=== PATIENT | female | born 1945 | race Caucasian/White ===

== ENCOUNTER 2017-07-08 09:10 | Observation (INO) | payer OTHER, BC ==
[~2017-07-08] VITALS: Ht 157.5 cm; Wt 62.9 kg
[~2017-07-08 09:10] MED LIST: ADULT LOW DOSE81 M1 PO; ALTACE5 MG PO; ASPIR-LOW81 MG PO; ASPIR-MOX 325325 MG PO; ASPIR-TRIN325 M1 PO; CARBATROL-ER100 MG PO; FLOVENT DISKUS1 DIS2 IH; HYDROCODON-ACE1 EAC7 PO; LIPITOR10 MG PO; LIPITOR5 MG PO; LOPRESSOR50 MG PO; METOPROLOL SUCC50 MG PO; OMEPRAZOLE40 M1 PO; PLAVIX75 MG PO; PRILOSEC40 MG PO; RAMIPRIL5 MG PO; Ramipril PO; TOPROL XL50 MG PO; TRAMADOL HCL50 MG; Toprol XL PO; Zocor PO
[2017-07-08 09:54] LABS: HEMATOCRIT 39.3 % (36.0-46.0); MCH 31.2 PG (29.0-34.0); MCHC 34.4 G/DL (30.0-36.0); MCV 90.8 FL (83-99); MEAN PLAT.VOLUME 10.1 uM^3 (9.5-12.4); PLATELET COUNT 158 K/uL (156-360); RBC DIS.WIDTH-SD 42.9 % (39-53); RED BLOOD COUNT 4.33 M/uL (3.80-5.20); WHITE BLOOD COUNT 7.4 K/uL (4.1-10.2)
[2017-07-08 10:02] LABS: CHLORIDE 105 mEq/L (99-109); POTASSIUM 3.9 mEq/L (3.7-5.4); SODIUM 138 mEq/L (136-147)
[2017-07-08 10:04] LABS: GLUCOSE 128 mg/dL (70-99)
[2017-07-08 10:06] LABS: ANION GAP 11 MEQ/L (2-14); TOTAL BILIRUBIN 0.6 mg/dL (0.0-1.0)
[2017-07-08 10:08] LABS: ALKALINE PHOSPHATASE 92 IU/L (3-129); GFR ESTIMATE (CALCULATED) > 59 mL/min/
[2017-07-08 10:09] LABS: UREA NITROGEN (BUN) 7 mg/dL (9-23)
[2017-07-08 10:14] LABS: TROP-I INTERPRETATION NEGATIVE; TROPONIN-I < 0.01 ng/mL (0.0-0.30)
[2017-07-08] MEDS ORDERED: VITAMIN D31000 UNI2 PO (10:38)
[2017-07-08 16:15] VITALS: BP 102/53
[2017-07-08 19:21] VITALS: BP 107/64
[2017-07-08 19:50] VITALS: BP 110/53
[2017-07-08 20:12] LABS: CREATINE KINASE 44 IU/L (1-294); TOTAL CK 44 IU/L (1-294)
[2017-07-08 20:15] LABS: TROP-I INTERPRETATION NEGATIVE; TROPONIN-I 0.16 ng/mL (0.0-0.30)
[2017-07-08 20:16] LABS: CK-MB 1.6 ng/mL (0.0-4.9)
[2017-07-09 01:09] VITALS: BP 117/56
[2017-07-09 04:28] VITALS: BP 109/53
[2017-07-09 05:53] LABS: BASOPHIL COUNT 0.1 K/uL (0-0.1); EOSINOPHIL (%) 1.4 % (0-5); EOSINOPHIL COUNT 0.1 K/uL (0-0.3); HEMATOCRIT 33.5 % (36.0-46.0); IMMATURE GRANULOCYTE (%) 0.4 % (0.0-0.7); INSTRUMENT ABS NEUTROPHIL CT 2.8 K/uL; LYMPHOCYTE COUNT 1.6 K/uL (1.0-2.8); MCH 31.5 PG (29.0-34.0); MCHC 33.7 G/DL (30.0-36.0); MCV 93.3 FL (83-99); MEAN PLAT.VOLUME 10.3 uM^3 (9.5-12.4); MONOCYTE (%) 7.8 % (3-12); MONOCYTE COUNT 0.4 K/uL (0-0.8); NEUTROPHIL (%) 56.7 % (45-76); NEUTROPHIL COUNT 2.8 K/uL (1.8-6.4); PLATELET COUNT 121 K/uL (156-360); RBC DIS.WIDTH-CV 13.3 % (11.8-14.6); RBC DIS.WIDTH-SD 45.4 % (39-53); RED BLOOD COUNT 3.59 M/uL (3.80-5.20)
[2017-07-09 06:09] LABS: CREATINE KINASE 50 IU/L (1-294); TOTAL CK 50 IU/L (1-294)
[2017-07-09 06:14] LABS: ANION GAP 4 MEQ/L (2-14); CHLORIDE 112 MEQ/L (99-109); GFR ESTIMATE (CALCULATED) > 59 mL/min/; GLUCOSE 94 mg/dL (70-99); HDL CHOLESTEROL 38 MG/DL (Desirable>=50); LDL CHOLESTEROL 32 mg/dL (Desirable<100); NON-HDL CHOLESTEROL 41 mg/dL (Desirable<160); SAMPLE HEMOLYSIS CHECK 0; SAMPLE ICTERIC CHECK 0; SAMPLE LIPEMIA CHECK 0; SODIUM 140 MEQ/L (136-147); TOTAL CHOLESTEROL 79 mg/dL (Desirable<200); TRIGLYCERIDES 44 MG/DL (Normal: <150); UREA NITROGEN (BUN) 7 mg/dL (9-23)
[2017-07-09 07:04] LABS: TROP-I INTERPRETATION INDETERMINATE; TROPONIN-I 0.41 ng/mL (0.0-0.30)
[2017-07-09 07:31] VITALS: BP 110/53
[2017-07-09 08:16] LABS: CK-MB 2.2 ng/mL (0.0-4.9); Estimated Average Glucose 123 mg/dL (70-123); HEMOGLOBIN A1c (GLYCOHEMOGLOB) 5.9 % HGB (Below 5.7)
[2017-07-09] MEDS ORDERED: ATORVASTATIN CA40 MG PO (10:49)
[2017-07-09] MEDS ORDERED: LOPRESSOR25 MG PO (10:50)
== END 2017-07-09 12:22 | disposition home or self-care (01) ==
LOC: EME 09:10 → EDOF 10:17 → 4EAST 10:17 → ENRESERV 10:24 → 4EAST 16:13
PROVIDERS: Emergency Medicine; Internal Medicine Interventional Cardiology
DX: T82.858A Stenosis of other vascular prosthetic devices, implants and grafts, initial encounter (principal); I25.110 Atherosclerotic heart disease of native coronary artery with unstable angina pectoris; I10 Essential (primary) hypertension; Z95.5 Presence of coronary angioplasty implant and graft; I25.2 Old myocardial infarction; I34.0 Nonrheumatic mitral (valve) insufficiency; Z79.82 Long term (current) use of aspirin; Z79.02 Long term (current) use of antithrombotics/antiplatelets; E78.2 Mixed hyperlipidemia; Z90.49 Acquired absence of other specified parts of digestive tract; Z90.710 Acquired absence of both cervix and uterus; F17.210 Nicotine dependence, cigarettes, uncomplicated; Z80.0 Family history of malignant neoplasm of digestive organs; Z80.8 Family history of malignant neoplasm of other organs or systems; Y83.1 Surgical operation with implant of artificial internal device as the cause of abnormal reaction of the patient, or of later complication, without mention of misadventure at the time of the procedure
CPT/HCPCS: 36415; 71010; 80048; 80053; 80061; 82550; 82550 91; 82553; 83036; 84450; 84460; 84484; 85025; 85027; 85347; 85379; 93005; C1725; C1769; C1874; C1887; G0378; J1644; J2250; J2270; J3010; J7030